=== PATIENT | male | born 1935 | race Two or more races ===

== ENCOUNTER 2022-04-19 09:09 | Inpatient (IN) | payer OTHER, MEDICAID ==
[~2022-04-19] VITALS: Ht 177.8 cm; Wt 69.3 kg
[2022-04-19] MEDS ORDERED: hydrALAZINE HCL 20 MG/ML VL IV ONE ×2 (10:30→17:15)
[2022-04-19 10:42] LABS: Basophils # (auto) 0.1 10 ^3/uL (0-0.2); Basophils % (auto) 0.4 % (0.0-2.0); Eosinophils # (auto) 0 10 ^3/uL (0-0.8); Eosinophils % (auto) 0.1 % (0.0-7.0); Hematocrit 38.7 % (41.0-53.0); Hemoglobin 12.8 g/dL (13.5-17.5); Lymphocytes # (auto) 0.9 10 ^3/uL (0.4-5.4); Lymphocytes % (auto) 6.5 % (10.0-50.0); Mean Corpuscular Hemoglobin 31.1 pg (28.0-32.0); Mean Corpuscular Hgb Conc. 33.2 g/dL (32.0-36.0); Mean Corpuscular Volume 93.6 fL (80.0-100.0); Monocytes # (auto) 0.4 10 ^3/uL (0-1.3); Monocytes % (auto) 3.3 % (0.0-12.0); Neutrophils # (auto) 11.8 10 ^3/uL (1.6-8.6); Neutrophils % (auto) 89.7 % (37.0-80.0); Red Blood Cells 4.13 10^6/uL (4.5-5.90); White Blood Cell 13.2 10^3/uL (4.4-10.8)
[2022-04-19 11:09] LABS: Calcium 8.8 mg/dL (8.5-10.1); Potassium 3.9 mmol/L (3.5-5.1)
[2022-04-19 11:15] LABS: Albumin 4.1 g/dL (3.4-5.0); BUN/Creatinine Ratio 17.3; Bilirubin, Total 0.7 mg/dL (0.2-1.0)
[2022-04-19 12:01] LABS: Urine Bacteria NONE SEEN /hpf (None Seen); Urine Blood Negative /uL (Negative); Urine Specific Gravity 1.017 (1.001-1.035); Urine WBC 2 /hpf (0 - 3)
[2022-04-19 13:56] LABS: INR 1.12 (0.9-1.15); Partial Thromboplastin Time 26.5 sec (24.6-33.4)
[2022-04-19] MEDS ORDERED: FUROSEMIDE 100 MG/10ML VIAL IV ONE (17:15)
[2022-04-19] MEDS ORDERED: PANTOPRAZOLE 40 MG TAB PO ONE (18:45)
[2022-04-19] MEDS ORDERED: cefTRIAXone 1GM/50ML D5W 50 ML IV ONE (18:45)
[2022-04-19] MEDS ORDERED: APIX2.5T PO (18:48)
[2022-04-19] MEDS ORDERED: HYDR25TA87 PO (18:48)
[2022-04-19] MEDS ORDERED: CLON0.1T PO (18:48)
[2022-04-19] MEDS ORDERED: TAMS1CAP25 PO (18:48)
[2022-04-19] MEDS ORDERED: METO-289 PO (18:48)
[2022-04-19] MEDS ORDERED: GAB100C PO (18:48)
[2022-04-19] MEDS ORDERED: FLUO10TA18 PO (18:48)
[2022-04-19] MEDS ORDERED: LEVO75TA6 PO (18:48)
[2022-04-19] MEDS ORDERED: METO-289 (18:48)
[2022-04-19] MEDS ORDERED: AMIL5TAB24 PO (18:48)
[2022-04-19 19:34] LABS: Cholesterol 97 mg/dL (< 200); Triglycerides 41 mg/dL (< 150)
[2022-04-19 19:37] LABS: HDL Cholesterol 71 mg/dL (40-59); LDL Cholesterol 31 mg/dL (< 100)
[2022-04-19] MEDS ORDERED: METOPROLOL SUCCINATE XL 50 MG TAB PO ONE (19:45)
[2022-04-19] MEDS ORDERED: LABETALOL HCL 5 MG/ML 4ML SYRINGE IV ONE (20:45)
[2022-04-19] MEDS: SODIUM CHLORIDE 0.9% 1,000 ML IV SCH (20:49)
[2022-04-19] MEDS: APIXABAN 2.5 MG TAB PO SCH (22:00)
[2022-04-19] MEDS: cloNIDine HCL 0.1 MG TAB PO SCH (22:00)
[2022-04-19] MEDS: hydrALAZINE HCL 25 MG TAB PO SCH (22:00)
[2022-04-19] MEDS: GABAPENTIN 100 MG CAP PO SCH (22:00)
[2022-04-19] MEDS: hydrALAZINE HCL 20 MG/ML VL IV PRN (22:31)
[2022-04-20 07:21] LABS: Albumin 3.7 g/dL (3.4-5.0); Calcium 8.8 mg/dL (8.5-10.1); Potassium 4.1 mmol/L (3.5-5.1)
[2022-04-20 07:24] LABS: BUN/Creatinine Ratio 17.4; Bilirubin, Total 0.9 mg/dL (0.2-1.0); Total Protein 6.7 g/dL (6.4-8.2)
[2022-04-20 07:51] LABS: Basophils # (auto) 0 10 ^3/uL (0-0.2); Basophils % (auto) 0.1 % (0.0-2.0); Eosinophils # (auto) 0 10 ^3/uL (0-0.8); Hematocrit 37.2 % (41.0-53.0); Lymphocytes # (auto) 0.8 10 ^3/uL (0.4-5.4); Lymphocytes % (auto) 6.6 % (10.0-50.0); Mean Corpuscular Hemoglobin 30.7 pg (28.0-32.0); Mean Corpuscular Hgb Conc. 32.3 g/dL (32.0-36.0); Mean Corpuscular Volume 95.3 fL (80.0-100.0); Monocytes # (auto) 0.6 10 ^3/uL (0-1.3); Monocytes % (auto) 5.1 % (0.0-12.0); Neutrophils # (auto) 10.9 10 ^3/uL (1.6-8.6); Neutrophils % (auto) 88.2 % (37.0-80.0); Nucleated Red Blood Cells % 0.3 %; Red Blood Cells 3.91 10^6/uL (4.5-5.90); Red Cell Distribution Width 16.3 % (11.8-14.3); White Blood Cell 12.4 10^3/uL (4.4-10.8)
[2022-04-20] MEDS ORDERED: cefTRIAXone 1GM/50ML D5W 50 ML IV SCH (09:00)
[2022-04-20] MEDS ORDERED: ENOXAPARIN SOD 40 MG/0.4 ML SYRINGE SC SCH (10:00)
[2022-04-20] MEDS: TAMSULOSIN HYDROCHLORIDE 0.4 MG CAP PO SCH (11:14)
[2022-04-20] MEDS: PANTOPRAZOLE 40 MG TAB PO SCH (11:15)
[2022-04-20] MEDS: APIXABAN 2.5 MG TAB PO SCH ×2 (11:15→22:16)
[2022-04-20] MEDS: FLUoxetine HCL 10 MG CAP PO SCH (11:15)
[2022-04-20] MEDS: GABAPENTIN 100 MG CAP PO SCH ×2 (11:15→22:16)
[2022-04-20] MEDS: LEVOTHYROXINE SODIUM 25 MCG TAB PO SCH (11:15)
[2022-04-20] MEDS: cloNIDine HCL 0.1 MG TAB PO SCH ×2 (11:16→22:16)
[2022-04-20] MEDS: hydrALAZINE HCL 25 MG TAB PO SCH ×2 (11:16→22:00)
[2022-04-20] MEDS: AMILORIDE HCL 5 MG PO SCH (11:17)
[2022-04-20] MEDS: METOPROLOL SUCCINATE XL 50 MG TAB PO SCH (11:17)
[2022-04-20] MEDS: SODIUM CHLORIDE 0.9% 1,000 ML IV SCH (11:25)
[2022-04-20] MEDS ORDERED: LORazepam 2MG/ML-1ML VIAL IV PRN (14:45)
[2022-04-20 23:15] VITALS: BP 154/93
[2022-04-20] MEDS ORDERED: ATOR20TA50 PO (23:27)
[2022-04-20] MEDS ORDERED: AMLO-489 PO (23:27)
[2022-04-20 23:42] VITALS: BP 154/93
[2022-04-21 05:00] VITALS: BP 145/83
[2022-04-21 08:20] LABS: Basophils # (auto) 0 10 ^3/uL (0-0.2); Basophils % (auto) 0.2 % (0.0-2.0); Eosinophils # (auto) 0 10 ^3/uL (0-0.8); Eosinophils % (auto) 0.2 % (0.0-7.0); Hematocrit 34.6 % (41.0-53.0); Hemoglobin 11.5 g/dL (13.5-17.5); Lymphocytes # (auto) 1.1 10 ^3/uL (0.4-5.4); Lymphocytes % (auto) 7.9 % (10.0-50.0); Mean Corpuscular Hemoglobin 31.1 pg (28.0-32.0); Mean Corpuscular Hgb Conc. 33.1 g/dL (32.0-36.0); Monocytes % (auto) 6.9 % (0.0-12.0); Neutrophils # (auto) 11.8 10 ^3/uL (1.6-8.6); Neutrophils % (auto) 84.8 % (37.0-80.0); Nucleated Red Blood Cells % 0.1 %; Red Blood Cells 3.68 10^6/uL (4.5-5.90); Red Cell Distribution Width 16.3 % (11.8-14.3); White Blood Cell 13.9 10^3/uL (4.4-10.8)
[2022-04-21 08:37] LABS: BUN/Creatinine Ratio 19.6; Calcium 8.5 mg/dL (8.5-10.1); Potassium 3.5 mmol/L (3.5-5.1)
[2022-04-21 09:00] VITALS: BP 166/101
[2022-04-21] MEDS: AMILORIDE HCL 5 MG PO SCH (10:00)
[2022-04-21] MEDS: hydrALAZINE HCL 25 MG TAB PO SCH ×2 (10:06→23:05)
[2022-04-21] MEDS: FLUoxetine HCL 10 MG CAP PO SCH (10:07)
[2022-04-21] MEDS: TAMSULOSIN HYDROCHLORIDE 0.4 MG CAP PO SCH (10:07)
[2022-04-21] MEDS: cloNIDine HCL 0.1 MG TAB PO SCH ×2 (10:07→23:05)
[2022-04-21] MEDS: APIXABAN 2.5 MG TAB PO SCH ×2 (10:07→23:05)
[2022-04-21] MEDS: PANTOPRAZOLE 40 MG TAB PO SCH (10:08)
[2022-04-21] MEDS: LEVOTHYROXINE SODIUM 25 MCG TAB PO SCH (10:08)
[2022-04-21] MEDS: GABAPENTIN 100 MG CAP PO SCH ×2 (10:08→23:06)
[2022-04-21] MEDS: METOPROLOL SUCCINATE XL 50 MG TAB PO SCH (10:09)
[2022-04-21 13:00] VITALS: BP 148/95
[2022-04-21 17:00] VITALS: BP 143/80
[2022-04-21 20:00] VITALS: BP 167/103
[2022-04-21 22:00] VITALS: BP 167/103
[2022-04-22] VITALS (7 sets, daily range): BP systolic 125–182; BP diastolic 75–86
[2022-04-22] MEDS: hydrALAZINE HCL 20 MG/ML VL IV PRN (05:07)
[2022-04-22] MEDS: AMILORIDE HCL 5 MG PO SCH (10:00)
[2022-04-22] MEDS: METOPROLOL SUCCINATE XL 50 MG TAB PO SCH (10:42)
[2022-04-22] MEDS: cloNIDine HCL 0.1 MG TAB PO SCH ×2 (10:43→22:39)
[2022-04-22] MEDS: APIXABAN 2.5 MG TAB PO SCH ×2 (10:43→22:39)
[2022-04-22] MEDS: GABAPENTIN 100 MG CAP PO SCH ×2 (10:43→22:40)
[2022-04-22] MEDS: FLUoxetine HCL 10 MG CAP PO SCH (10:44)
[2022-04-22] MEDS: TAMSULOSIN HYDROCHLORIDE 0.4 MG CAP PO SCH (10:44)
[2022-04-22] MEDS: LEVOTHYROXINE SODIUM 25 MCG TAB PO SCH (10:44)
[2022-04-22] MEDS: PANTOPRAZOLE 40 MG TAB PO SCH (10:44)
[2022-04-22] MEDS ORDERED: amLODIPine BESYLATE 5 MG TAB PO ONE (10:45)
[2022-04-22] MEDS: hydrALAZINE HCL 25 MG TAB PO SCH ×2 (14:44→22:39)
[2022-04-23] VITALS (15 sets, daily range): BP systolic 120–172; BP diastolic 63–104
[2022-04-23] MEDS: hydrALAZINE HCL 25 MG TAB PO SCH ×3 (05:32→22:16)
[2022-04-23 06:33] LABS: Basophils # (auto) 0.1 10 ^3/uL (0-0.2); Basophils % (auto) 0.6 % (0.0-2.0); Eosinophils # (auto) 0.4 10 ^3/uL (0-0.8); Eosinophils % (auto) 4.8 % (0.0-7.0); Lymphocytes # (auto) 1.1 10 ^3/uL (0.4-5.4); Lymphocytes % (auto) 12.3 % (10.0-50.0); Mean Corpuscular Hgb Conc. 35.6 g/dL (32.0-36.0); Mean Corpuscular Volume 92.5 fL (80.0-100.0); Monocytes # (auto) 0.8 10 ^3/uL (0-1.3); Monocytes % (auto) 8.1 % (0.0-12.0); Neutrophils # (auto) 6.9 10 ^3/uL (1.6-8.6); Neutrophils % (auto) 74.2 % (37.0-80.0); Nucleated Red Blood Cells % 0.1 %; Red Blood Cells 3.35 10^6/uL (4.5-5.90); Red Cell Distribution Width 15.5 % (11.8-14.3); White Blood Cell 9.3 10^3/uL (4.4-10.8)
[2022-04-23 06:37] LABS: INR 1.06 (0.9-1.15); Partial Thromboplastin Time 26.8 sec (24.6-33.4)
[2022-04-23 06:38] LABS: BUN/Creatinine Ratio 24.1; Potassium 3.6 mmol/L (3.5-5.1)
[2022-04-23 08:20] LABS: Folate (Folic Acid) > 24.00 ng/mL (5.38-24)
[2022-04-23] MEDS ORDERED: amLODIPine BESYLATE 5 MG TAB PO SCH (10:00)
[2022-04-23] MEDS ORDERED: ONDANSETRON HCL 4 MG/2 ML VIAL IV ONE (10:15)
[2022-04-23] MEDS ORDERED: fentaNYL CITRATE 100 MCG/2 ML VL IV ONE ×2 (10:15→11:30)
[2022-04-23] MEDS ORDERED: MIDAZOLAM HCL 2MG/2ML 2ml VIAL (1mg/ml) IV ONE ×2 (10:15→11:30)
[2022-04-23] MEDS ORDERED: LIDOCAINE VISCOUS 2% 15ML UD PO ONE (10:15)
[2022-04-23] MEDS ORDERED: diphenhdrAMINE HCL 50 MG/1 ML VL IV ONE (10:15)
[2022-04-23] MEDS ORDERED: amLODIPine BESYLATE 5 MG TAB PO ONE (10:30)
[2022-04-23] MEDS: FLUoxetine HCL 10 MG CAP PO SCH (10:32)
[2022-04-23] MEDS: cloNIDine HCL 0.1 MG TAB PO SCH ×2 (10:32→22:16)
[2022-04-23] MEDS: PANTOPRAZOLE 40 MG TAB PO SCH (10:32)
[2022-04-23] MEDS: METOPROLOL SUCCINATE XL 50 MG TAB PO SCH (10:32)
[2022-04-23] MEDS: GABAPENTIN 100 MG CAP PO SCH ×2 (10:32→22:17)
[2022-04-23] MEDS: AMILORIDE HCL 5 MG PO SCH (10:32)
[2022-04-23] MEDS: LEVOTHYROXINE SODIUM 25 MCG TAB PO SCH (10:32)
[2022-04-23] MEDS: TAMSULOSIN HYDROCHLORIDE 0.4 MG CAP PO SCH (10:32)
[2022-04-23] MEDS: APIXABAN 2.5 MG TAB PO SCH ×2 (10:32→22:17)
[2022-04-23] MEDS ORDERED: LIDOCAINE VISCOUS 2% 15ML UD MT ONE (11:30)
[2022-04-23] MEDS ORDERED: CYANOCOBALAMIN (B-12) 1000 MCG/1 ML VIAL IM ONE (21:15)
[2022-04-24] MEDS: ACETAMINOPHEN 325 MG TAB PO PRN ×2 (04:07→16:00)
[2022-04-24 05:00] VITALS: BP 140/92
[2022-04-24] MEDS: hydrALAZINE HCL 25 MG TAB PO SCH ×3 (06:50→22:07)
[2022-04-24] MEDS: hydrALAZINE HCL 20 MG/ML VL IV PRN (08:05)
[2022-04-24 09:00] VITALS: BP 168/92
[2022-04-24] MEDS: TAMSULOSIN HYDROCHLORIDE 0.4 MG CAP PO SCH (09:47)
[2022-04-24] MEDS: APIXABAN 2.5 MG TAB PO SCH ×2 (09:48→22:08)
[2022-04-24] MEDS: GABAPENTIN 100 MG CAP PO SCH ×2 (09:48→22:07)
[2022-04-24] MEDS: PANTOPRAZOLE 40 MG TAB PO SCH (09:49)
[2022-04-24] MEDS: FLUoxetine HCL 10 MG CAP PO SCH (09:49)
[2022-04-24] MEDS: amLODIPine BESYLATE 5 MG TAB PO SCH (09:49)
[2022-04-24] MEDS: LEVOTHYROXINE SODIUM 25 MCG TAB PO SCH (09:49)
[2022-04-24] MEDS: cloNIDine HCL 0.1 MG TAB PO SCH ×2 (09:50→22:08)
[2022-04-24] MEDS: CYANOCOBALAMIN 500 MCG TAB PO SCH (09:50)
[2022-04-24] MEDS: METOPROLOL SUCCINATE XL 50 MG TAB PO SCH (09:51)
[2022-04-24] MEDS: AMILORIDE HCL 5 MG PO SCH (10:00)
[2022-04-24] MEDS ORDERED: AMIODARONE HCL 200 MG TAB PO ONE (10:15)
[2022-04-24 13:00] VITALS: BP 100/65
[2022-04-24 16:59] VITALS: BP 111/76
[2022-04-24 22:00] VITALS: BP 126/50
[2022-04-24] MEDS: AMIODARONE HCL 200 MG TAB PO SCH (22:08)
[2022-04-25 05:00] VITALS: BP 137/75
[2022-04-25] MEDS: hydrALAZINE HCL 25 MG TAB PO SCH ×2 (06:12→14:36)
[2022-04-25 09:00] VITALS: BP 141/80
[2022-04-25] MEDS: AMILORIDE HCL 5 MG PO SCH (10:00)
[2022-04-25] MEDS: LEVOTHYROXINE SODIUM 25 MCG TAB PO SCH (10:18)
[2022-04-25] MEDS: TAMSULOSIN HYDROCHLORIDE 0.4 MG CAP PO SCH (10:18)
[2022-04-25] MEDS: FLUoxetine HCL 10 MG CAP PO SCH (10:18)
[2022-04-25] MEDS: METOPROLOL SUCCINATE XL 50 MG TAB PO SCH (10:19)
[2022-04-25] MEDS: GABAPENTIN 100 MG CAP PO SCH (10:19)
[2022-04-25] MEDS: APIXABAN 2.5 MG TAB PO SCH (10:19)
[2022-04-25] MEDS: PANTOPRAZOLE 40 MG TAB PO SCH (10:20)
[2022-04-25] MEDS: cloNIDine HCL 0.1 MG TAB PO SCH (10:20)
[2022-04-25] MEDS: amLODIPine BESYLATE 5 MG TAB PO SCH (10:21)
[2022-04-25] MEDS: AMIODARONE HCL 200 MG TAB PO SCH (10:22)
[2022-04-25] MEDS: CYANOCOBALAMIN 500 MCG TAB PO SCH (10:22)
[2022-04-25 13:00] VITALS: BP 138/82
[2022-04-25] MEDS: ACETAMINOPHEN 325 MG TAB PO PRN (14:02)
[2022-04-25 15:19] VITALS: BP 138/82
== END 2022-04-25 16:30 | DRG 64 ==
LOC: EDBD 09:09 → ER 09:13 → OVERFLOW 18:43 → CENTRAL 04-20 22:45 → TELE-CENTR 04-20 23:11
PROVIDERS: ADMIT Nurse Practitioner Family; ATTEND Internal Medicine Geriatric Medicine
DX: I63.541 Cerebral infarction due to unspecified occlusion or stenosis of right cerebellar artery (principal); G93.41 Metabolic encephalopathy; I16.9 Hypertensive crisis, unspecified; N17.9 Acute kidney failure, unspecified; I13.0 Hypertensive heart and chronic kidney disease with heart failure and stage 1 through stage 4 chronic kidney disease, or unspecified chronic kidney disease; R73.9 Hyperglycemia, unspecified; D64.9 Anemia, unspecified; D72.829 Elevated white blood cell count, unspecified; F32.A Depression, unspecified; Z20.822 Contact with and (suspected) exposure to COVID-19; R26.9 Unspecified abnormalities of gait and mobility; I48.91 Unspecified atrial fibrillation; W18.39XA Other fall on same level, initial encounter; I50.9 Heart failure, unspecified; N40.0 Benign prostatic hyperplasia without lower urinary tract symptoms; S51.811A Laceration without foreign body of right forearm, initial encounter; E78.5 Hyperlipidemia, unspecified; E03.9 Hypothyroidism, unspecified; N18.9 Chronic kidney disease, unspecified; Z79.01 Long term (current) use of anticoagulants; Z83.3 Family history of diabetes mellitus; Z86.73 Personal history of transient ischemic attack (TIA), and cerebral infarction without residual deficits; Y93.89 Activity, other specified; Y92.89 Other specified places as the place of occurrence of the external cause; Y99.8 Other external cause status
CPT/HCPCS: 36415; 70450; 70551; 71045; 80048; 80053; 80061; 81001; 82607; 82746; 83036; 83880; 84443; 84484; 85025; 85610; 85730; 87040; 87426; 92610; 93005; 93306; 93312; 93886; 93970; 95819; 96365; 96366; 96375; 96376; 97110; 97116; 97163; 97530; 99152; G0378; J0696; J2250; J2405; J3490